=== PATIENT | female | born 1980 | race Caucasian/White ===

== ENCOUNTER 2016-04-11 20:48 | Emergency (ER) | payer OTHER ==
[~2016-04-11] VITALS: Ht 157.5 cm; Wt 68.0 kg
[~2016-04-11 20:48] MED LIST: ALBU17AE23 IH; CYCL10TA9 PO; HYDR50CA3 PO; METH25TA5 PO; NAPR-243 PO; OCP; ONDA8TAB9 PO; SERT25TA PO; THYROID PILL
--- OUTSIDE RECORDS SUMMARY | 2016-04-11 20:53 | XMS REPORT | Continuity of Care Document ---
Author Author [facility] Organization [facility] Address Unknown Phone Unavailable Care Team Providers Care Food Sampler Name Role Phone NO, LOCAL PHYSICIAN PCP Unavailable Insurance Providers Payer Name Policy Number Subscriber Name Relationship [facility] [id number] Miguel Ángel Correa W 01 Advance Directives Directive Response Recorded Date/Time Advance Directives No 05/28/14 3:45am Resuscitation Status Full Code 05/28/14 3:45am Problems Medical Problems Problem Onset Date Status Anxiety hyperventilation Unknown Active Medications Medication Dose Route Sig Days/Qty Instructions Order Date Discontinued Date Status Albuterol 1 Gm IH 11/19/10 05/28/14 Discontinued [Thyroid Pill] 11/19/10 05/28/14 Discontinued [Ocp] 11/19/10 05/28/14 Discontinued Methazolamide 25 Mg PO DAILY 05/28/14 Active Sertraline HCl 25 Mg PO DAILY 05/28/14 Active Naproxen 1 Each PO TWICE A DAY 05/28/14 Active Cyclobenzaprine HCl (Flexeril) 1 Each PO EVERY 8HRS 15 Qty 05/28/14 Active Hydroxyzine Pamoate (Vistaril) 1-2 Each PO QID PRN For Anxiety 10 Qty 05/28/14 Active Social History Social History Problem Response Recorded Date/Time Alcohol Use Denies Use 05/28/2014 3:45am Recreational Drug Use No 05/28/2014 3:45am Recent Foreign Travel No 05/28/2014 3:45am Recent Infectious Disease Exposure No 05/28/2014 3:45am Hospitalization with Isolation Denies 05/28/2014 3:45am Smoking Status Never a Smoker 05/28/2014 3:45am Query Response Start Date Stop Date Smoking Status Never a Smoker Hospital Discharge Instructions No hospital discharge instructions. Plan of Care No plan of care. Functional Status No functional status results. Allergies, Adverse Reactions, Alerts Allergen Type Severity Reaction Status Last Updated No Known Drug Allergies Active 11/19/10 Immunizations No immunization records. Vital Signs Acute Vital Signs Vital Response Date/Time Temperature (Fahrenheit) 97.9 degrees F (97.6 - 99.5) Temperature (Calculated Celsius) 36.15248 degrees C (36.4 - 37.5) Temperature Source Temporal Pulse Rate (adult) 90 bpm (60 - 90) Respiratory Rate 18 bpm (12 - 24) O2 Sat by Pulse Oximetry 100 % (88 - 100) Blood Pressure 129/80 mm Hg Pain Pain Intensity 8 Height (Feet) 5 feet Height (Inches) 2 inches Height (Calculated Centimeters) 157.053705 cm Weight (Pounds) 145 pounds Weight (Calculated Kilograms) 65.822202 kilograms Calculated BMI 26.52 Results Laboratory Results Test Name Result Units Flags Reference Collection Date/Time Result Date/ Time Comments White Blood Count 11.5 10^3/uL H 4.3-11.0 05/28/2014 4:00am 05/28/2014 4: 12am Red Blood Count 4.32 10^6/uL L 4.35-5.85 05/28/2014 4:00am 05/28/2014 4: 12am Hemoglobin 12.8 G/DL 11.5-16.0 05/28/2014 4:00am 05/28/2014 4:12am Hematocrit 37 % 35-52 05/28/2014 4:00am 05/28/2014 4:12am Mean Corpuscular Volume 85 FL 80-99 05/28/2014 4:00am 05/28/2014 4: 12am Mean Corpuscular Hemoglobin 30 PG 25-34 05/28/2014 4:00am 05/28/2014 4: 12am Mean Corpuscular Hemoglobin Concent 35 G/DL 32-36 05/28/2014 4:00am 01/2015 4:12am Red Cell Distribution Width 12.8 % 10.0-14.5 05/28/2014 4:00am 2014 4:12am Platelet Count 219 10^3/uL 130-400 05/28/2014 4:00am 05/28/2014 4:12am Mean Platelet Volume 10.6 FL H 7.4-10.4 05/28/2014 4:00am 05/28/2014 4: 12am Neutrophils (%) (Auto) 69 % 42-75 05/28/2014 4:00am 05/28/2014 4:12am Lymphocytes (%) (Auto) 23 % 12-44 05/28/2014 4:00am 05/28/2014 4:12am Monocytes (%) (Auto) 4 % 0-12 05/28/2014 4:00am 05/28/2014 4:12am Eosinophils (%) (Auto) 3 % 0-10 05/28/2014 4:00am 05/28/2014 4:12am Basophils (%) (Auto) 0 % 0-10 05/28/2014 4:00am 05/28/2014 4:12am Neutrophils # (Auto) 8.0 X 10^3 H 1.8-7.8 05/28/2014 4:00am 05/28/2014 4: 12am Lymphocytes # (Auto) 2.6 X 10^3 1.0-4.0 05/28/2014 4:00am 05/28/2014 4: 12am Monocytes # (Auto) 0.5 X 10^3 0.0-1.0 05/28/2014 4:00am 05/28/2014 4: 12am Eosinophils # (Auto) 0.3 10^3/uL 0.0-0.3 05/28/2014 4:00am 05/28/2014 4 :12am Basophils # (Auto) 0.1 10^3/uL 0.0-0.1 05/28/2014 4:00am 05/28/2014 4: 12am Prothrombin Time 13.1 SEC 12.2-14.7 05/28/2014 4:00am 05/28/2014 4: 32am INR Comment 1.0 0.8-1.4 05/28/2014 4:00am 05/28/2014 4:32am INTERPRETIVE DATA SUGGESTED THERAPEUTIC RANGE FOR INR'S: VENOUS THROMBOSIS, PULMONARY EMBOLISM, OR PREVENTION OF SYSTEMIC EMBOLISM (EG. IN ATRIAL FIBRILLATION): 2.0 - 3.0 MECHANICAL PROSTHETIC HEART VALVES: 2.5 - 3.5* *NOTE: INR'S UP TO 4.5 MAY BE NECESSARY IN SELECTED GROUPS OF HIGH RISK PATIENTS. [employer] CONSENSUS CONFERENCE ON ANTITHROMBOTIC THERAPY (2000). Activated Partial Thromboplast Time 27 SEC 24-35 05/28/2014 4:00am 01/2015 4:32am D-Dimer < 0.27 UG/ML 0.00-0.49 05/28/2014 4:00am 05/28/2014 4:32am Sodium Level 141 MMOL/L 135-145 05/28/2014 4:00am 05/28/2014 4:40am Potassium Level 3.6 MMOL/L 3.6-5.0 05/28/2014 4:00am 05/28/2014 4:40am Chloride Level 107 MMOL/L 98-107 05/28/2014 4:00am 05/28/2014 4:40am Carbon Dioxide Level 22 MMOL/L 21-32 05/28/2014 4:00am 05/28/2014 4: 40am Blood Urea Nitrogen 18 MG/DL 7-18 05/28/2014 4:00am 05/28/2014 4:40am Creatinine 0.82 MG/DL 0.60-1.30 05/28/2014 4:00am 05/28/2014 4:40am BUN/Creatinine Ratio 22 05/28/2014 4:00am 05/28/2014 4:40am Estimat Glomerular Filtration Rate > 60 05/28/2014 4:00am 2014 4:40am GFR INTERPRETIVE DATA UNITS FOR ESTIMATED GFR (eGFR): mL/min/1.73 M2 REFERENCE RANGE FOR ESTIMATED GFR (eGFR) eGFR NORMAL eGFR >60 MODERATELY DECREASED eGFR 30-59 SEVERLY DECREASED eGFR 15-29 KIDNEY FAILURE <15 (OR DIALYSIS) Glucose Level 108 MG/DL H 70-105 05/28/2014 4:00am 05/28/2014 4:40am Calcium Level 9.4 MG/DL 8.5-10.1 05/28/2014 4:00am 05/28/2014 4:40am Magnesium Level 2.1 MG/DL 1.8-2.4 05/28/2014 4:00am 05/28/2014 4:40am Total Bilirubin 0.5 MG/DL 0.1-1.0 05/28/2014 4:00am 05/28/2014 4:40am Alkaline Phosphatase 76 U/L 40-136 05/28/2014 4:00am 05/28/2014 4:40am Aspartate Amino Transf (AST/SGOT) 20 U/L 5-34 05/28/2014 4:00am 2014 4:40am Alanine Aminotransferase (ALT/SGPT) 9 U/L 0-55 05/28/2014 4:00am 2014 4:40am Total Creatine Kinase 156 U/L 29-168 05/28/2014 4:00am 05/28/2014 4: 40am Creatine Kinase MB 1.5 NG/ML <6.6 05/28/2014 4:00am 05/28/2014 4:59am Troponin I < 0.30 NG/ML <0.30 05/28/2014 4:00am 05/28/2014 4:59am B-Type Natriuretic Peptide 12.7 PG/ML <100.0 05/28/2014 4:00am 2014 4:47am Total Protein 7.3 G/DL 6.4-8.2 05/28/2014 4:00am 05/28/2014 4:40am Albumin 4.5 G/DL 3.2-4.5 05/28/2014 4:00am 05/28/2014 4:40am Amylase Level 50 U/L 25-125 05/28/2014 4:00am 05/28/2014 4:40am Lipase 10 U/L 8-78 05/28/2014 4:00am 05/28/2014 4:40am TSH [place] Testing 3.87 UIU/ML 0.35-4.94 05/28/2014 4:00am 05/28/2014 4:59am Procedures Procedure Status Date Provider(s) Tracing only of electrocardiogram completed 05/28/14 SRAVANI MEZA DO Encounters Encounter Location Date/Time Departed Emergency Room [facility] 05/28/14 3:39am Recent Diagnosis
[2016-04-11] MEDS ORDERED: ALPR0.5T7 PO (21:00)
[2016-04-11] MEDS ORDERED: GLYC2TAB3 PO (21:00)
[2016-04-11] MEDS ORDERED: ESCI10TA55 PO (21:00)
[2016-04-11] MEDS ORDERED: FAMOTIDINE 20 MG (PEPCID) TABLET PO STA (21:35)
[2016-04-11] MEDS ORDERED: ONDANSETRON 4 MG (ZOFRAN) ORAL DISSOLVE TAB SL STA (21:35)
--- NOTE | 2016-04-11 21:42 | ED GI ---
General Chief Complaint: Abdominal/GI Problems Stated Complaint: VOMITING/UPPER BACK PAIN Nursing Triage Note: PT REPORTS SHE WAS EATING SOMETHING SPICY AT [employer]. SHE HAD UPPER ABD PAIN THAT RADIATED TO BACK. SHE THEN BEGAN VOMITING WITH DIARRHEA. Sepsis Screen: No Definite Risk Source of Information: Patient Exam Limitations: No Limitations History of Present Illness Time Seen By Provider: 21:26 Initial Comments Here with report of acute onset of nausea, vomiting and diarrhea after eating at a local [employer] restaurant facility. She states that she had pain that radiated to her upper back and then began vomiting. Afterwards she had the diarrhea. She has history of anxiety and she states that worsened rapidly during the event. She came here for further evaluation. States that overall things are settling down now and she feels better. Timing/Duration: 1 Hour, Changing Over Time Severity/Quality: Moderate, Sharp Location: Epigastric Radiation: Back Modifying Factors: Worsens With Eating, Improves With Resting Associated Symptoms: Back Pain Nausea/Vomiting Allergies and Home Medications Allergies Coded Allergies: Beef Containing Products (Unverified Adverse Reaction, Unknown, 04/11/16) lactase (Unverified Adverse Reaction, Unknown, 04/11/16) Home Medications Alprazolam 0.5 Mg Tablet 0.5 MG PO PRN (Reported) Escitalopram Oxalate 10 Mg Tablet #30 10 MG PO DAILY (Reported) Glycopyrrolate 2 Mg Tablet #60 2 MG PO BID (Reported) Methazolamide 25 Mg Tablet 25 MG PO DAILY (Reported) Review of Systems Constitutional: see HPINo chills, No fever Respiratory: No Symptoms Reported Cardiovascular: No Symptoms Reported Gastrointestinal: See HPI Abdominal Pain Diarrhea Nausea Vomiting Genitourinary: No Symptoms Reported Musculoskeletal: see HPI back pain Skin: no symptoms reported Psychiatric/Neurological: See HPI AnxietyDenies Headache Past Jvycwjv-Sjlcmt-Txsfvo Hx Patient Social History Alcohol Use: Denies Use Recreational Drug Use: No Smoking Status: Never a Smoker Recent Foreign Travel: No Contact w/Someone Who Travel: No Recent Infectious Disease Expo: No Recent Hopitalizations: No (RECENTLY TREATED FOR URI BY PCP) Immunizations Up To Date Date of Influenza Vaccine: Dec 18, 2015 Seasonal Allergies Seasonal Allergies: No (FOOD ALLERGIES) Surgeries HX Surgeries: Yes Surgeries: Section, Gallbladder Respiratory Hx Respiratory Disorders: Yes Respiratory Disorders: Asthma Cardiovascular Hx Cardiac Disorders: No Neurological Hx Neurological Disorders: Yes (GRIFFIN'S PALSY 1996) Neurological Disorders: Headaches /Migraines Genitourinary Hx Genitourinary Disorders: No Gastrointestinal Hx Gastrointestinal Disorders: No Musculoskeletal Hx Musculoskeletal Disorders: Yes (CHRONIC NECK PAIN /"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) Endocrine Hx Endocrine Disorders: Yes Endocrine Disorders: Hyperthyroidism HEENT HX ENT Disorders: No Cancer Hx Cancer: No Psychosocial Hx Psychiatric Problems: Yes (HYPERVENTILATION) Behavioral Health Disorders: Anxiety Integumentary HX Skin/Integumentary Disorder: No Blood Transfusions Hx Blood Disorders: No Reviewed Nursing Assessment Reviewed/Agree w Nursing PMH: Yes Family Medical History Significant Family History: No Pertinent Family Hx Physical Exam Vital Signs VS - Last 72 Hours, by Label 04/11/16 20:54 Temp 98.3 Pulse 105 Resp 20 B/P 146/98 Capillary Refill : Less Than 3 Seconds General Appearance: WD/WN no apparent distress Neck: full range of motion supple Respiratory: lungs clear normal breath sounds Cardiovascular: regular rate, rhythm no murmur Gastrointestinal: non tender soft Extremities: non-tender normal inspection Neurologic/Psychiatric: alert oriented x 3 Skin: normal color warm/dry Progress/Results/Core Measures Results/Orders My Orders Orders-FRITZ SIMS MD Ondansetron Oral Dissolve Tab (Zofran (04/11/16 21:35) Famotidine Tablet (Pepcid Tablet) (04/11/16 21:35) Alprazolam Tablet (Xanax Tablet) (04/11/16 22:00) Medications Given in ED Current Medications Medications Dose Ordered Sig/Rosa Route Start Time Stop Time Status Last Admin Dose Admin Alprazolam 0.5 mg ONCE ONCE PO 04/11/16 22:00 04/11/16 22:01 DC 04/11/16 22:00 0.5 MG Vital Signs/I&O Vital Sign - Last 12Hours 04/11/16 20:54 Temp 98.3 Pulse 105 Resp 20 B/P 146/98 Blood Pressure Mean: 114 Progress Note : Progress Note Seen and evaluated. We discussed different options of therapy and ultimately decided on oral agents of Zofran 4 mg by mouth and Pepcid 20 mg by mouth. Monitor patient.Patient was experiencing some anxiety. Xanax 0.5 mg by mouth given which is her typical dosing. 2220: Overall improved. She is able to tolerate sips. She did have one episode of nonbloody diarrhea here. States that she feels much better. Discharged home with return precautions. Patient verbalize understanding instructions and agreement with plan. Go pack of ondansetron given. Departure Impression Impression: Primary Impression: Nausea vomiting and diarrhea Disposition: HOME, SELF-CARE Condition: Improved Departure-Patient Inst. Decision time for Depature: 22:20 Referrals: NO,LOCAL PHYSICIAN (PCP/Family) Primary Care Physician Patient Instructions: Acute Abdomen (Belly Pain), Adult (DC), Diarrhea in Adolescents and Adults, Nausea and Vomiting, Adult Add. Discharge Instructions: All discharge instructions reviewed with patient and/or family. Voiced understanding. Clear liquid diet for the next 12-24 hours and then advance as tolerated. Take small sips of fluids frequently. Continue home medications as directed. Follow -up with your Dr. in a few days for recheck. Return for worse pain, fever, vomiting, weakness, breathing problems or other concerns as needed. Scripts Ondansetron (Ondansetron Odt)4 Mg Tab.rapdis4 Mg PO Q6H PRN NAUSEA/VOMITING #8 TAB Prov:FRITZ SIMS MD 04/11/16 FRITZ SIMS MD Apr 11, 2016 21:42
[2016-04-11] MEDS ORDERED: ALPRAZolam 0.25 MG (XANAX) TAB PO ONE (22:00)
[2016-04-11] MEDS ORDERED: RX-ONDANSETRON 4 MG ODT (ZOFRAN) PPK #4 PO STA (22:23)
[2016-04-11] MEDS ORDERED: ONDA4TAB11 PO (22:27)
[2016-04-11 22:47] VITALS: BP 167/92
== END 2016-04-11 22:49 | disposition home or self-care (01) ==
LOC: EDUNIT# 20:48 → ER 20:49
DX: R11.2 Nausea with vomiting, unspecified (principal); R19.7 Diarrhea, unspecified; F41.9 Anxiety disorder, unspecified
CPT/HCPCS: 99283

== ENCOUNTER → 2020-01-06 | Outpatient (CLI) | payer BC ==
[~2020-01-06] MED LIST changes: +ALPR0.5T7 PO; +CATHETER FLUSH 10 ML SYR IV PRN; +ESCI10TA55 PO; +GLYC2TAB3 PO; +HOLD METFORMIN - RECEIVED CONTRAST 20 ML VIAL IV SCH; +IOHEXOL 350 MG/ML 100 ML (OMNIPAQUE 350) VIAL IV ONE; +NS 100 ML (IVPB) BAG IV ONE; +ONDA4TAB11 PO
--- NOTE | 2020-01-06 14:51 | Diagnostic Imaging Report ---
EXAMINATION: CT angiography of the chest. TECHNIQUE: Contrast enhanced thin section helical images were obtained through the chest with intravenous contrast timed for the optimal opacification of the arterial structures per CTA protocol. Post-processing, reconstructions and interpretation of angiographic images of the vessels was performed. 3D MIP reconstructions were performed and reviewed. All CT scans use one or more of the following dose optimizing techniques: automated exposure control, MA and/or KvP adjustment based on patient size and exam type or iterative reconstruction. HISTORY: Shortness of breath COMPARISON: None available. FINDINGS: There is no pulmonary embolism. There is no edema or pneumonia. No pleural effusion. No pneumothorax. No suspicious nodules. There is no axillary or supraclavicular lymphadenopathy. There is no mediastinal lymphadenopathy. Heart size is normal. There are no coronary artery calcifications. No pericardial effusion. Aorta is normal in caliber. Limited views of the upper abdomen show absent gallbladder. There are no suspicious osseus lesions. IMPRESSION: No pulmonary embolism, clear lungs. Dictated by: Dictated on workstation # [id number]
== END ==
LOC: RAD 14:15
PROVIDERS: ATTEND Nurse Practitioner Family
DX: J45.40 Moderate persistent asthma, uncomplicated (principal)
CPT/HCPCS: 71275